=== PATIENT | male | born 1990 | race Asian ===

== ENCOUNTER 2020-07-24 07:41 | Emergency (ER) | payer OTHER ==
[~2020-07-24] VITALS: Ht 170.2 cm; Wt 89.2 kg
--- NOTE | 2020-07-24 08:12 | NUR ---
20 GAUGE IV STARTED RIGHT AC, BLOOD COLLECTED AND LABELLED AT BEDSIDE. PATIENT CONNECTED TO MONITORS.
[2020-07-24] MEDS ORDERED: FAMOTIDINE 20 MG/2 ML ONE (08:13)
[2020-07-24] MEDS ORDERED: MAALOX/HYOSCYAMINE/LIDOCAINE 45 ML BTL ONE (08:13)
[2020-07-24] MEDS ORDERED: ONDANSETRON 2MG/ML, 2ML ONE (08:13)
[2020-07-24 08:19] LABS: BASOPHILS % (AUTO) 0 % (0-1); EOSINOPHILS % (AUTO) 0 % (1-7); LYMPHOCYTES % (AUTO) 18 % (22-44); MEAN CORPUSCULAR HEMOGLOBIN 30.9 pg (27.5-34.5); MEAN CORPUSCULAR HGB CONC 34.2 g/dL (33.2-36.2); MEAN PLATELET VOLUME 6.7 fL (7.4-10.4); MONOCYTES % (AUTO) 5 % (2-9); NEUTROPHILS % (AUTO) 77 % (42-75); PLATELET COUNT 436 x10^3/uL (130-400); RED BLOOD COUNT 4.99 x10^6/uL (4.38-5.82); RED CELL DISTRIBUTION WIDTH 14.1 % (9.4-14.8)
[2020-07-24 08:23] LABS: MD NO
[2020-07-24 08:30] LABS: ALANINE AMINOTRANSFERASE 81 U/L (12-78); ALBUMIN 4.4 g/dL (3.4-5.0); ANION GAP 8 mmol/L (5-15); CALCIUM 9.9 mg/dL (8.5-10.1); CHLORIDE 109 mmol/L (98-107); CREATININE 1.01 mg/dL (0.7-1.3)
[2020-07-24] MEDS ORDERED: SODIUM CHLORIDE FLUSH 10ML SYR IVF ONE (08:30)
[2020-07-24] MEDS ORDERED: ONDANSETRON 2MG/ML, 2ML IVPush ONE (08:30)
[2020-07-24] MEDS ORDERED: SODIUM CHLORIDE 0.9% 1,000ML IVBOLUS ONE (08:30)
[2020-07-24] MEDS ORDERED: MAALOX/HYOSCYAMINE/LIDOCAINE 45 ML BTL PO ONE (08:30)
[2020-07-24] MEDS ORDERED: FAMOTIDINE 20 MG/2 ML IVPush ONE (08:30)
[2020-07-24 08:32] LABS: ALKALINE PHOSPHATASE 66 U/L (45-117); BILIRUBIN,TOTAL 0.7 mg/dL (0.2-1.0); TOTAL PROTEIN 8.4 g/dL (6.4-8.2)
[2020-07-24] MEDS ORDERED: DICYCLOMINE 10 MG/ML, 2ML ONE (08:59)
[2020-07-24] MEDS ORDERED: DICYCLOMINE 10 MG/ML, 2ML IM ONE (09:00)
--- NOTE | 2020-07-24 09:05 | NUR ---
PATIENT MEDICATED PER eMAR, NADN, VSS, CALL LIGHT WITHIN REACH, NO FURTHER NEEDS AT THIS TIME.
[2020-07-24 09:20] VITALS: BP 143/85
== END 2020-07-24 09:23 | disposition home or self-care (01) ==
LOC: ED 08:52
DX: K21.00 Gastro-esophageal reflux disease with esophagitis, without bleeding (principal); K29.00 Acute gastritis without bleeding; R11.2 Nausea with vomiting, unspecified; R10.13 Epigastric pain
CPT/HCPCS: 36415; 80053; 83690; 85025; 96361; 96372; 96374; 96375; 99284; J0500; J2405; J7030

== ENCOUNTER 2020-07-24 15:50 | Emergency (ER) | payer OTHER ==
[~2020-07-24] VITALS: Ht 167.6 cm; Wt 88.7 kg
[2020-07-24] MEDS ORDERED: DIPHENHYDRAMINE 50 MG/ML, 1ML IVPush ONE (16:30)
[2020-07-24] MEDS ORDERED: PROCHLORPERAZINE 5 MG/ML, 2ML IVPush ONE (16:30)
[2020-07-24] MEDS ORDERED: SODIUM CHLORIDE 0.9% 1,000ML IVBOLUS ONE (16:30)
[2020-07-24] MEDS ORDERED: SODIUM CHLORIDE FLUSH 10ML SYR IVF ONE (16:30)
[2020-07-24] MEDS ORDERED: PROCHLORPERAZINE 5 MG/ML, 2ML ONE (16:39)
[2020-07-24] MEDS ORDERED: DIPHENHYDRAMINE 50 MG/ML, 1ML ONE (16:39)
[2020-07-24 17:45] VITALS: BP 111/50
== END 2020-07-24 17:49 | disposition home or self-care (01) ==
LOC: ED 16:07
DX: K29.00 Acute gastritis without bleeding (principal); R11.2 Nausea with vomiting, unspecified; K21.9 Gastro-esophageal reflux disease without esophagitis
CPT/HCPCS: 96361; 96374; 96375; 99284; J0780; J1200; J7030

== ENCOUNTER 2020-11-04 13:22 | Outpatient (CLI) | payer OTHER ==
[2020-11-04 13:48] LABS: ALANINE AMINOTRANSFERASE 45 U/L (12-78); ALBUMIN 4.2 g/dL (3.4-5.0); ANION GAP 6 mmol/L (5-15); CHLORIDE 108 mmol/L (98-107); CREATININE 0.89 mg/dL (0.7-1.3)
[2020-11-04 13:50] LABS: ALKALINE PHOSPHATASE 54 U/L (45-117); BILIRUBIN,TOTAL 0.6 mg/dL (0.2-1.0)
== END 2020-11-04 23:59 | disposition home or self-care (01) ==
LOC: LAB 13:22
PROVIDERS: ATTEND Nurse Practitioner Family
DX: R79.89 Other specified abnormal findings of blood chemistry (principal)
CPT/HCPCS: 36415; 80053